=== PATIENT | male | born 1995 | race African-American/Black ===

== ENCOUNTER → 2022-11-23 13:50 | Outpatient (CLI) | payer OTHER, SELFPAY ==
--- NOTE | 2022-11-23 13:52 | DI.RAD.S_ITS ---
PROCEDURE: XR LUMBAR SPINE MIN 4V INDICATIONS: Lumbar spine pain TECHNIQUE: 5 views of the lumbar spine acquired, including flexion and extension views. COMPARISON: None. FINDINGS: Bones: 5 nonrib-bearing vertebrae are present. There is normal bony alignment. No vertebral body compression fractures. No suspicious bony lesions. Soft tissues: Overlying bowel gas pattern is normal. No suspicious soft tissue calcifications. Flexion/extension: There is normal range of motion, with preserved normal alignment. IMPRESSION: No acute bony abnormality. Dictated by: Nathan Staley M.D. on 11/23/2022 at 13:34 Approved by: Nathan Staley M.D. on 11/23/2022 at 13:37
== END ==
PROVIDERS: Referring Provider Physician Assistant; Visit Provider Physician Assistant
DX: M54.50 Low back pain, unspecified (principal)
CPT/HCPCS: 72110